=== PATIENT | female | born 1980 | race American Indian/Alaskan Native ===

== ENCOUNTER 2018-10-09 09:29 | Emergency (ER) | payer OTHER ==
[2018-10-09 09:40] VITALS: BP 172/86
[2018-10-09] MEDS ORDERED: IBUPROFEN PO ONE (10:48)
--- NOTE | 2018-10-09 10:52 | Emergency Department Report ---
ED ENT HPI - General Chief complaint: Dental/Oral Stated complaint: CRACK TOOTH Source: patient Mode of arrival: Ambulatory Limitations: No Limitations - History of Present Illness Initial comments: This is a 38-year-old female who presents to the emergency room with dental pain to the left upper wisdom tooth. Patient states tooth crack a few weeks ago. She reports increasing pain over the past 1 week. Patient states she is using Oragel and sees no improvement of symptoms. She attempted to see a dentist this morning and unsuccessful. Patient states she was told [facility] out of office until after the holiday. She denies sore throat, difficulty swallowing, fever. MD complaint: tooth pain Onset/Timin -: week(s) Location: tooth # (#16) Severity: severe Severity scale (0 -10): 10 Quality: aching Consistency: constant Improves with: none Worsens with: eating Context- Dental: trauma Associated Symptoms: gum swelling, toothache. denies: fever, cough, pain with swallowing, sore throat, tinnitus, hearing loss, discharge from ear, rhinorrhea - Related Data Previous Rx's Medication Instructions Recorded Last Taken Type Amoxicillin [Trimox CAP] 500 mg PO Q8H #21 capsule 10/09/18 Unknown Rx Naproxen [Naprosyn] 500 mg PO TID PRN #20 tablet 10/09/18 Unknown Rx traMADol [Ultram 50 MG tab] 50 mg PO Q6HR PRN #12 tablet 10/09/18 Unknown Rx Allergies Allergy/AdvReac Type Severity Reaction Status Date / Time No Known Allergies Allergy Unverified 10/09/18 09:31 ED Dental HPI - General Chief complaint: Dental/Oral Stated complaint: CRACK TOOTH Source: patient Mode of arrival: Ambulatory Limitations: No Limitations - Related Data Previous Rx's Medication Instructions Recorded Last Taken Type Amoxicillin [Trimox CAP] 500 mg PO Q8H #21 capsule 10/09/18 Unknown Rx Naproxen [Naprosyn] 500 mg PO TID PRN #20 tablet 10/09/18 Unknown Rx traMADol [Ultram 50 MG tab] 50 mg PO Q6HR PRN #12 tablet 10/09/18 Unknown Rx Allergies Allergy/AdvReac Type Severity Reaction Status Date / Time No Known Allergies Allergy Unverified 10/09/18 09:31 ED Review of Systems ROS: Stated complaint: CRACK TOOTH Other details as noted in HPI Constitutional: denies: chills, fever ENT: dental pain. denies: ear pain, throat pain Respiratory: denies: cough, shortness of breath, wheezing Cardiovascular: denies: chest pain, palpitations Gastrointestinal: denies: abdominal pain, nausea, diarrhea Skin: denies: rash, lesions Neurological: denies: headache, weakness, paresthesias Psychiatric: denies: anxiety, depression ED Past Medical Hx - Past Medical History Previous Medical History?: No - Surgical History Past Surgical History?: No - Social History Smoking Status: Never Smoker Substance Use Type: None - Medications Home Medications: Home Medications Medication Instructions Recorded Confirmed Last Taken Type Amoxicillin [Trimox CAP] 500 mg PO Q8H #21 capsule 10/09/18 Unknown Rx Naproxen [Naprosyn] 500 mg PO TID PRN #20 tablet 10/09/18 Unknown Rx traMADol [Ultram 50 MG tab] 50 mg PO Q6HR PRN #12 tablet 10/09/18 Unknown Rx ED Physical Exam - General Limitations: No Limitations General appearance: alert, in no apparent distress - ENT ENT exam: Present: normal orophraynx, mucous membranes moist, TM's normal bilaterally, normal external ear exam, other (tooth avulsion #16, surrounding mucosal swelling, tenderness, no palpable nodule) - Neck Neck exam: Present: normal inspection - Respiratory Respiratory exam: Present: normal lung sounds bilaterally. Absent: respiratory distress - Cardiovascular Cardiovascular Exam: Present: regular rate, normal rhythm. Absent: systolic murmur, diastolic murmur, rubs, gallop - GI/Abdominal GI/Abdominal exam: Present: soft, normal bowel sounds - Neurological Exam Neurological exam: Present: alert, oriented X3 - Psychiatric Psychiatric exam: Present: normal affect, normal mood - Skin Skin exam: Present: warm, dry, intact, normal color. Absent: rash ED Course Vital Signs 10/09/18 10/09/18 09:38 09:51 Temperature 98.4 F 98.4 F Pulse Rate 65 65 Respiratory 18 18 Rate Blood Pressure 172/86 Blood Pressure 172/86 [Right] O2 Sat by Pulse 99 99 Oximetry ED Medical Decision Making - Medical Decision Making Patient is stable and was examined by me. Given ibuprofen once in ER. Susceptible of tooth avulsion #16. Start tramadol, naproxen, and amoxicillin. Referral to emergency dentist for followup. Discussed plan with patient. She agreed with ER plan. Discharged home stable. Follow up with dentist. Critical care attestation.: If time is entered above; I have spent that time in minutes in the direct care of this critically ill patient, excluding procedure time. ED Disposition Clinical Impression: Pain, dental Tooth avulsion Qualifiers: Encounter type: initial encounter Qualified Code(s): S03.2XXA - Dislocation of tooth, initial encounter Disposition: TO HOME OR SELFCARE Is pt being admited?: No Does the pt Need Aspirin: No Condition: Stable Instructions: Toothache (ED), Acute dental trauma (ED) Additional Instructions: Complete all days of amoxicillin as prescribed for 7 days. Take pain medication every 6-8 hours as needed for pain. Follow up with Dentist from the referral list below in 24-72 hours. Prescriptions: Naproxen [Naprosyn] 500 mg PO TID PRN #20 tablet PRN Reason: Pain, Moderate (4-6) Amoxicillin [Trimox CAP] 500 mg PO Q8H #21 capsule traMADol [Ultram 50 MG tab] 50 mg PO Q6HR PRN #12 tablet PRN Reason: Pain Referrals: ANDIE HOOPEROLIVET MD [facility] [Primary Care Provider] - 3-5 Days [facility] [Outside] - 3-5 Days [facility] [Outside] - 3-5 Days [facility] [Outside] - 3-5 Days Forms: Work/School Release Form(ED) Time of Disposition: 10:56
== END 2018-10-09 12:10 | disposition home or self-care (01) ==
LOC: ED 09:29
DX: S03.2XXA Dislocation of tooth, initial encounter (principal); X58.XXXA Exposure to other specified factors, initial encounter; Y93.89 Activity, other specified; Y92.89 Other specified places as the place of occurrence of the external cause; Y99.8 Other external cause status
CPT/HCPCS: 99282